=== PATIENT | female | born 1960 | race Caucasian/White ===

== ENCOUNTER → 2020-12-29 | Outpatient (CLI) | payer OTHER | LOC: RAD 14:06 | DX: M19.011 Primary osteoarthritis, right shoulder (principal); M17.12 Unilateral primary osteoarthritis, left knee; M24.411 Recurrent dislocation, right shoulder | CPT/HCPCS: 73030; 73564 ==

== ENCOUNTER → 2021-02-19 | Outpatient (CLI) | payer OTHER | LOC: RAD 10:27 | DX: M54.5 Low back pain (principal); M47.816 Spondylosis without myelopathy or radiculopathy, lumbar region; M43.16 Spondylolisthesis, lumbar region; M48.061 Spinal stenosis, lumbar region without neurogenic claudication; M48.05 Spinal stenosis, thoracolumbar region | CPT/HCPCS: 72110; 72202 ==

== ENCOUNTER → 2021-02-27 | Outpatient (CLI) | payer OTHER | LOC: KOH-I 11:28 | DX: M87.011 Idiopathic aseptic necrosis of right shoulder (principal); M14.611 Charcot's joint, right shoulder; M25.411 Effusion, right shoulder; M43.12 Spondylolisthesis, cervical region; M47.892 Other spondylosis, cervical region | CPT/HCPCS: 72141; 73221 ==

== ENCOUNTER → 2021-03-30 | Outpatient (CLI) | payer OTHER | LOC: EXRD 11:10 | DX: M81.0 Age-related osteoporosis without current pathological fracture (principal); M85.88 Other specified disorders of bone density and structure, other site; M85.852 Other specified disorders of bone density and structure, left thigh | CPT/HCPCS: 77080 ==

== ENCOUNTER → 2021-08-28 | Outpatient (CLI) | payer OTHER | LOC: KOH-I 08-21 09:00 | DX: M54.12 Radiculopathy, cervical region (principal); M43.12 Spondylolisthesis, cervical region | CPT/HCPCS: 72125 ==

== ENCOUNTER → 2022-03-15 | Outpatient (CLI) | payer OTHER | LOC: LAB 13:51 | DX: Z96.652 Presence of left artificial knee joint (principal) | CPT/HCPCS: 36415; 85652; 86140 ==